=== PATIENT | female | born 1965 | race Caucasian/White ===

== ENCOUNTER 2021-12-03 06:45 | Inpatient (IN) | payer BC, SELFPAY ==
[2021-12-03] VITALS (57 sets, daily range): BP systolic 146–182; BP diastolic 77–166; PULSE 40–86; RESP 10–27; TEMP 34.1–36.7; O2SAT 93–100; BMI 18.3; BMI 21.8
--- NOTE | ~2021-12-03 | CT_ITS ---
EXAMINATION: CT BRAIN W/O DATE: 12/03/2021 20:04 INDICATION: Confusion and lethargy. TECHNIQUE: Computed tomography (CT) of the head was performed without intravenous contrast. The dose- length product was 605.33 mGy-cm. COMPARISON: No prior studies for comparison. FINDINGS: Normal brain parenchymal volume for age. Normal thurman-white differentiation. No acute intrac ranial hemorrhage, infarction, mass or mass effect. No ventriculomegaly or midline shift. Midline sagittal images demonstrate a normal corpus callosum, c raniovertebral junction and sella turcica. Basilar cisterns are patent. Paranasal sinuses and mastoids are pneumatized. No depressed skull fractures. IMPRESSION: 1. No acute intracranial abnormality. Reviewed, dictated and finalized at location A.
--- NOTE | ~2021-12-03 | XR_ITS ---
EXAMINATION: XR chest 1V portable INDICATION: Weakness, nausea and vomiting TECHNIQUE: Portable AP chest at 0758 hours COMPARISON: None available FINDINGS: The lungs are free of acute opacities. No pleural effusion or pneumothorax. The cardiomedia stinal silhouette is normal. IMPRESSION: 1. No acute cardiopulmonary abnormality. Reviewed, dictated and finalized at location A.
--- NOTE | ~2021-12-03 | CT_ITS ---
EXAMINATION: CT abdomen pelvis w con DATE: 12/03/2021 09:17 INDICATION: Epigastric abdominal pain TECHNIQUE: Computed tomography (CT) of the abdomen and pelvis was performed with 100 CC Omnipaque 350 intravenous contrast. Automated exposure control and iterative reconstruction technique were employe d. Exam dose: 502.06 mGy-cm total exam DLP. COMPARISON: 12/03/2021 portable AP chest FINDINGS: The lung bases are clear. Normal heart size. No pericardial or pleural effusion. Bilateral breast implants. Diffuse hepatic steatosis. No hepatic, splenic, pancreatic, adrenal space-occupying mass lesion. Several right renal cysts are noted, measuring up to 2 cm dimension. One or more small probable left renal cysts. No ureteral calculus or hydroureteronephrosis is noted on either side. There is a Israel catheter within the urinary bladder, which likely accounts for a small amount of air in the bladder lumen. No bladder wall thickening or fat stranding around the bladder. Normal caliber of the abdominal aorta. No intraperitoneal or retroperitoneal or pelvic mass lesion or adenopathy or ascites is noted. The uterus is situated in the right pelvic area. No adnexal mass les ion is noted. There is diverticulosis of the left and right colon; no CT evidence of diverticulitis. No bowel obstr uction or intraperitoneal free air. Small fat-containing umbilical hernia. Severe degenerative disc disease at L2-3 and moderately severe degenerative disc disease at L4-5. No suspicious lytic or osteosclerotic lesions are noted. IMPRESSION: Hepatic steatosis Diverticulosis of left and right colon; no evidence of diverticulitis Bilateral renal probable cysts Bilateral breast implants Reviewed, dictated and finalized at Location A. Reviewed, dictated and finalized at location D.
--- NOTE | 2021-12-03 06:47 | ECG_ITS ---
Measurements Intervals [place] Rate: 57 P: 46 AL: 160 QRS: 38 QRSD: 89 T: 45 QT: 455 QTc: 445 Interpretive Statements SINUS BRADYCARDIA BASELINE ARTIFACT- I, II, AVR, AVL, AVF, V1, V4 BORDERLINE ECG NO PREVIOUS ECG AVAILABLE FOR COMPARISON Electronically Signed On 12-03-2021 7:47:00 CDT by Sohail Uriarte D.O.
[2021-12-03 06:58] LABS: Glucose Point of Care 126 mg/dl (65-105)
[2021-12-03] MEDS: ONDANSETRON INJ 4 MG/2 ML VIAL IV PUSH (07:02)
[2021-12-03] MEDS: SODIUM CHLORIDE 0.9% IV 1,000 ML 999 ML IV CONT ×2 (07:02→09:19)
--- NOTE | 2021-12-03 07:10 | PC.NURSE ---
Dr. Crenshaw at bedside at this time.
[2021-12-03 07:14] LABS: Basophils Absolute Auto 0.1 K/mm3 (0.0-0.1); Basophils Percent Auto 0.6 % (0.2-1.2); Eosinophils Absolute Auto 0.1 K/mm3 (0-0.3); Eosinophils Percent Auto 0.4 % (0-4.4); Hemoglobin 15.2 g/dL (12.0-15.0); Immature Granulocyte Absolute 0.04 K/mm3 (0.00-0.031); Immature Granulocyte Percent A 0.3 % (0-0.5); Lymphocytes Absolute Auto 2.64 K/mm3 (0.9-3.2); Lymphocytes Percent Auto 22.9 % (18.3-44.2); Mean Corpuscular HGB Conc 34.5 g/dl (32-36); Mean Corpuscular Hemoglobin 29.4 pg (26-34); Mean Corpuscular Volume 85.1 fl (80-100); Mean Platelet Volume 10.9 fl (7.4-10.4); Monocytes Absolute Auto 0.5 K/mm3 (0.1-0.6); Monocytes Percent Auto 4.5 % (2.6-8.5); Neutrophils Absolute Auto 8.2 K/mm3 (1.3-6.7); Neutrophils Percent Auto 71.3 % (45.5-73.1); Platelet Count Result 344 k/mm3 (150-375); Red Blood Count 5.17 M/mm3 (4.2-5.4); Red Cell Distribution Width 13.5 % (11.5-14.5); White Blood Count 11.5 K/mm3 (4.5-10.0)
--- NOTE | 2021-12-03 07:16 | ED.GENADULT ---
HPI - General Adult General Chief complaint: Weakness Stated complaint: Vomiting Time Seen by Provider: 12/03/21 06:57 History of Present Illness HPI narrative: Patient is a 56-year-old female who presents ER with weakness and nausea and vomiting. Patient began vomiting 2 hours ago and EMS helped family. She has pain in her epigastrium. She reports she has had a couple of bouts of this over the last 2 years. She was initially seen in [facility] where she lives. She reports she is given antiemetics and discharged home. She also had a CT scan that showed some renal cysts but they do not know what those cysts represent. She has since been to urgent cares. She is currently traveling for work. Patient does have history of hypothyroidism for which she does take her levothyroxine. Coworkers present reports she has had at least a 50 pound weight loss. Patient denies any fevers but she was diaphoretic when she arrived. Patient also found to be hypothermic. Related Data Home Medications Medication Instructions Recorded Confirmed bupropion HCl 150 mg 24 hr tablet, mg PO 12/03/21 extended release bupropion HCl 300 mg 24 hr tablet, mg PO 12/03/21 extended release diltiazem HCl 240 mg mg PO 12/03/21 capsule,extended release 24 hr escitalopram oxalate 10 mg tablet mg 12/03/21 pantoprazole 40 mg tablet,delayed mg PO 12/03/21 release prochlorperazine maleate 10 mg mg 12/03/21 tablet Allergies Allergy/AdvReac Type Severity Reaction Status Date / Time No Known Allergies Allergy Verified 12/03/21 07:01 Review of Systems Review of Systems: All systems reviewed & are unremarkable except as noted in HPI and below Constitutional: Constitutional: Reports chills, Reports fatigue and Denies fever(s) ENT: Denies nasal congestion and Denies sore throat Cardiovascular: Cardiovascular: Denies chest pain, Denies rapid heart rate and Denies radiating jaw, neck or arm pain Respiratory: Respiratory: Denies cough Gastrointestinal: Gastrointestinal: Reports abdominal pain, Denies diarrhea, Reports nausea and Reports vomiting Genitourinary: Genitourinary: Denies nocturia and Denies dysuria Musculoskeletal: Musculoskeletal: Denies back pain and Denies arthralgias [facility] Past Medical History Medical History (Updated 12/03/21 @ 18:21 by Azam Crenshaw MD) Elijah's thyroiditis Hypothyroidism Renal cyst Surgical History Surgical History (Updated 12/03/21 @ 07:17 by Azam Crenshaw MD) History of section x3 Family History Family History (Updated 12/03/21 @ 17:46 by Ben Pérez RN) Other Unknown family medical history Social History Social History (Updated 12/03/21 @ 07:45 by Azam Crenshaw MD) Smoking status: Never smoker Exam Narrative: GENERAL: Fatigued-appearing, well-nourished, and in no acute distress. HEAD: Normocephalic, atraumatic. EYES: PERRL and EOMI. ENT: Mucous membranes moist. CHEST: Clear to auscultation. No respiratory distress. HEART: Bradycardic and regular. Normal peripheral pulses. ABDOMEN: Soft, mild epigastric discomfort without guarding, nondistended. EXTREMITIES: Normal range of motion. No edema. SKIN: Cool, dry, no rash. NEURO: Alert and oriented x3. PSYCH: Normal mood and affect. Course Course Emergency Course: I spoke with the patient's Jerrell who feels patient has had her thyroid level followed every 6 to 12 months through her PCP. I have gone through her [email or web address] shruthi on her phone. Her last TSH was on 01/08/2021 and was 0.028. Her T3 was 3.4, and her free T4 was 1.46. She also had a thyroid peroxidase antibody drawn and it was elevated at 69 with a normal high of 34. Prior to that she had a TSH of 3.030 on 11/23/2017, and then had a TSH of 25.95 on 07/27/2017. At that time her T3 was 2.4 and her T4 free was 0.98. It does not appear patient has filled her levothyroxine since December 2020 when she was on 137 mcg. Patient
--- NOTE | 2021-12-03 07:20 | PC.NURSE ---
Bedside report given to YOGESH Reid.
--- NOTE | 2021-12-03 07:21 | PC.NURSE ---
Care assumed of pt. Pt has terence hugger in place and NS running through fluid warmer upon arrival to room.
[2021-12-03 07:29] LABS: Lipase 106 U/L (23-300)
[2021-12-03 07:31] LABS: Alanine Aminotransferase 20 U/L (6-35); Albumin Level 4.9 g/dL (3.5-5.1); Alkaline Phosphatase 102 U/L (38-126); Anion Gap 14 mmol/L (8-16); Aspartate Amino Transferase 27 U/L (14-36); Bilirubin,Total 0.9 mg/dL (0.2-1.3); Blood Urea Nitrogen 16 mg/dL (7-17); Calcium 10.3 mg/dL (8.4-10.2); Carbon Dioxide 15 mmol/L (22-30); Chloride 110 mmol/L (98-107); Estimated Glomerular Filt Rate 58; Glucose 119 mg/dL (65-110); Potassium 3.8 mmol/L (3.4-5.0); Sodium 139 mmol/L (137-145)
[2021-12-03 07:35] LABS: Glucose Point of Care 113 mg/dl (65-105)
[2021-12-03 08:02] LABS: Appearance Urine Clear (Clear); Bilirubin Urine Negative (Negative); Blood Urine Negative (Negative); Color Urine Yellow (Yellow); Glucose Urine UA Negative (Negative); Ketones Urine 2+ mg/dL (Negative); Leukocyte Esterase Ur Trace LEU/UL (Negative); Nitrate Urine Negative (Negative); Protein Urine Negative (Negative); Specific Grav Ur 1.025 (1.001-1.035); Urobilinogen Urine 0.2 mg/dL (<2.0); pH Urine 6.5 (5.0-9.0)
[2021-12-03 08:07] LABS: Mucus Urine Rare /lpf; RBC Urine 0-2 /hpf (0-2); Squamous Epithelial Cell Urine Rare /hpf (Few); WBC Urine 0-3 /hpf
[2021-12-03 08:08] LABS: Ethanol < 10 mg/dL (<10)
[2021-12-03 08:14] LABS: Add Urine Microscopic? YES
[2021-12-03 08:22] LABS: Barbiturate Screen Urine Negative (Negative); Benzodiazepines Screen Urine Negative (Negative)
[2021-12-03 08:29] LABS: Amphetamine Screen Urine Negative (Negative); Cannabinoid Screen Urine Positive (Negative); Cocaine Screen Urine Negative (Negative); Methadone Screen Urine Negative (Negative); Opiate Screen Urine Positive (Negative); Phencyclidine Screen Urine Negative (Negative)
[2021-12-03] MEDS: MORPHINE SULFATE (*CRX) 4 MG/ML INJ IV PUSH (08:34)
[2021-12-03 08:38] LABS: Lactic Acid Reflex 2.7 mmol/L (0.7-2.0)
--- NOTE | 2021-12-03 08:51 | PC.NURSE ---
Pt to CT.
--- NOTE | 2021-12-03 10:02 | PC.NURSE ---
Dr. Taylor at bedside for pt reassessment.
[2021-12-03 10:34] LABS: Free T4 Free Thyroxine Reflex 0.95 ng/dL (0.78-2.19)
[2021-12-03 10:49] LABS: Reflex Lactic Acid Yes or No Add Lactic
--- NOTE | 2021-12-03 11:21 | PC.NURSE ---
Pt is now resting more comfortably. Pt and friends at bedside updated. Call light within reach.
[2021-12-03 11:25] LABS: Lactic Acid 0.6 mmol/L (0.7-2.0)
[2021-12-03 11:28] LABS: Total Triiodothyronine (T3) 1.19 NG/ML (0.97-1.69)
[2021-12-03] MEDS: LEVOTHYROXINE SODIUM INJ 100 MCG/5 ML VIAL 70 MCG IV PUSH (11:55)
[2021-12-03] MEDS: HYDROCORTISONE SODIUM SUCCINATE 100 MG/2 ML VIAL IV PUSH ×3 (11:56→21:04)
[2021-12-03 12:46] LABS: Creatine Kinase 101 U/L (30-135)
[2021-12-03] MEDS: SODIUM CHLORIDE 0.9% IV 1,000 ML 125 ML IV CONT ×2 (13:43→20:47)
[2021-12-03] MEDS: PROMETHAZINE HCL 25 MG/ML AMPUL 12.5 MG IV PUSH ×2 (13:44→21:05)
[2021-12-03] MEDS: hydrALAZINE HCL 20 MG/ML VIAL 2.5 MG IV PUSH ×2 (14:00→20:42)
--- NOTE | 2021-12-03 17:35 | PC.NURSE ---
1228 This patient, Delaney Morgan, was admitted to IMU Room 207-01. Patient/family oriented to hospital policies and general routines including ID bracelet, bed and alarms, visiting hours, pain management, procedures, bathroom and other care routines, personal items, smoking policy, room service/diet, and visiting hours. Information on how to activate the Rapid Response Team has been discussed. Patient/Family are encouraged to report perceived risks to care and to ask questions if they do not understand what they are told or what they should do.
--- NOTE | 2021-12-03 19:30 | PM.IMHP ---
H&P: HPI History of Present Illness Date/Time: 12/03/21 08:30 Chief Complaint: nausea, vomiting, diarrhea Narrative: 56F with a past medical history of hypothyroidism and hypertension who presents to the emergency department with nausea, vomiting and diarrhea. History obtained from employees who are present with the patient and some parts from patient. Male employee reports the patient woke him around 0300 this morning vomiting and confused not making sense, so he brought her to the emergency department. Patient says she does not remember what time but that she remembers having nausea, vomiting and diarrhea overnight. She also reports headache and vision changes. Currently, the patient reports feeling feverish, epigastric abdominal pain, nausea, vomiting, headache, sore throat, weakness and generalized malaise. She says she takes her thyroid medication every morning with her other medication but without food. She reports feeling poorly with fatigue and tiredness for the last year and a half. Has had a 50lb weight loss and says she has been to a doctor to have this worked up but has been smoking marijuana to increase her appetite. Patient denies chest pain, shortness of breath, difficulty breathing. In the emergency department, TSH 95, Free T4 is pending. Lipase 106. UA with trace leukocyte esterase. UDS positive for cannabinoids and opioates. Lactic acid 2.7. Initial temperature 95.[address] abdomen pelvis with hepatic steatosis and diverticulosis. Review of Systems Constitutional: Constitutional: Reports body ache(s), Reports fatigue and Reports weakness Cardiovascular: Cardiovascular: Denies chest pain, Reports diaphoresis, Reports lightheadedness and Denies palpitations Respiratory: Respiratory: Denies dyspnea Gastrointestinal: Gastrointestinal: Reports abdominal pain, Reports diarrhea, Reports nausea and Reports vomiting Musculoskeletal: Musculoskeletal: Reports myalgias Neurologic: Reports confusion Endocrine: Endocrine: Reports excessive sweating, Reports fatigue and Reports heat intolerance PMFSH Past Medical History Medical History Elijah's thyroiditis Hypertension Hypothyroidism Nephrolithiasis Ovarian cyst Renal cyst Surgical History Surgical History History of section x3 Family History Family History (Updated 12/03/21 @ 19:47 by Micheline Glaser MD) Mother Thyroid condition Other Adopted Unknown family medical history Social History Social History (Updated 12/03/21 @ 19:48 by Micheline Glaser MD) Smoking packs per day: 0.3 Smoking cigarettes per day: 6.0 Years smoked: 10 Smoking pack-years: 3.00 Smoking status: Former smoker Tobacco type: cigarettes Second hand tobacco smoke exposure: No Smoking end date: 03/13/00 Alcohol intake: former Substance use: current Substance use type: marijuana Living arrangements: with family 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 Meds Home Medications and Allergies Home Medications Medication Instructions Recorded Confirmed Type bupropion HCl 150 mg 24 hr tablet, 150 mg PO DAILY 12/03/21 12/03/21 History extended release bupropion HCl 300 mg 24 hr tablet, 300 mg PO DAILY 12/03/21 12/03/21 History extended release diltiazem HCl 240 mg 240 mg PO DAILY 12/03/21 12/03/21 History capsule,extended release 24 hr escitalopram oxalate 10 mg tablet 10 mg DAILY 12/03/21 12/03/21 History pantoprazole 40 mg tablet,delayed 40 mg PO DAILY 12/03/21 12/03/21 History release prochlorperazine maleate 10 mg 10 mg DAILY 12/03/21 12/03/21 History tablet Allergies Allergy/AdvReac Type Severity Reaction Status Date / Time No Known Allergies Allergy
[2021-12-04] VITALS (13 sets, daily range): BP systolic 108–159; BP diastolic 73–87; PULSE 45–77; RESP 12–16; TEMP 36.5–37.6; O2SAT 99–100
[2021-12-04] MEDS: SODIUM CHLORIDE 0.9% IV 1,000 ML 125 ML IV CONT ×3 (04:54→20:35)
[2021-12-04 04:59] LABS: Basophils Percent Auto 0.1 % (0.2-1.2); Hematocrit 40.8 % (37.0-47.0); Hemoglobin 13.7 g/dL (12.0-15.0); Immature Granulocyte Absolute 0.05 K/mm3 (0.00-0.031); Immature Granulocyte Percent A 0.5 % (0-0.5); Lymphocytes Absolute Auto 0.83 K/mm3 (0.9-3.2); Mean Corpuscular HGB Conc 33.6 g/dl (32-36); Mean Corpuscular Hemoglobin 29.6 pg (26-34); Mean Corpuscular Volume 88.1 fl (80-100); Mean Platelet Volume 10.8 fl (7.4-10.4); Monocytes Absolute Auto 0.3 K/mm3 (0.1-0.6); Monocytes Percent Auto 2.5 % (2.6-8.5); Neutrophils Absolute Auto 9.2 K/mm3 (1.3-6.7); Neutrophils Percent Auto 88.9 % (45.5-73.1); Platelet Count Result 307 k/mm3 (150-375); Red Blood Count 4.63 M/mm3 (4.2-5.4); Red Cell Distribution Width 14.4 % (11.5-14.5); White Blood Count 10.4 K/mm3 (4.5-10.0)
[2021-12-04] MEDS: PROMETHAZINE HCL 25 MG/ML AMPUL 12.5 MG IV PUSH ×3 (04:59→19:27)
[2021-12-04 05:09] LABS: INR 1.1; Prothrombin Time 13.9 Seconds (11.1-14.7)
[2021-12-04 05:10] LABS: Partial Thromboplastin Time 26.2 SECONDS (22.3-36.8)
[2021-12-04 05:32] LABS: Alanine Aminotransferase 18 U/L (6-35); Albumin Level 4.2 g/dL (3.5-5.1); Alkaline Phosphatase 74 U/L (38-126); Anion Gap 15 mmol/L (8-16); Aspartate Amino Transferase 20 U/L (14-36); Bilirubin,Total 0.4 mg/dL (0.2-1.3); Blood Urea Nitrogen 14 mg/dL (7-17); Calcium 9.1 mg/dL (8.4-10.2); Carbon Dioxide 16 mmol/L (22-30); Chloride 109 mmol/L (98-107); Estimated CRCL calculation 76 ml/min; Estimated Glomerular Filt Rate > 60; Glucose 106 mg/dL (65-110); Potassium 3.7 mmol/L (3.4-5.0); Sodium 140 mmol/L (137-145)
[2021-12-04] MEDS: HYDROCORTISONE SODIUM SUCCINATE 100 MG/2 ML VIAL IV PUSH (06:50)
[2021-12-04] MEDS: LEVOTHYROXINE SODIUM INJ 100 MCG/5 ML VIAL 70 MCG IV PUSH (06:51)
--- NOTE | 2021-12-04 08:34 | PM.IMPN ---
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 TSH 95. Cortisol high. Free t4 normal. Clinically improved this morning. -Discontinue hydrocortisone -Levothyroxine 70 mcg IV daily -Continue terence hugger -Continue IVF -Zofran PRN (2) Metabolic acidosis: Code(s): E87.2 - Acidosis Status: Acute Assessment and Plan: Diarrhea versus hypothermia. Improved. Will continue IVF. (3) Leukocytosis: Code(s): D72.829 - Elevated white blood cell count, unspecified Status: Acute Assessment and Plan: Patient lactic acid resolved without antibiotics but with fluids. Hemodynamically stable. Will defer antibiotics for now. No evidence of pneumonia on CXR or urinary tract infection on UA. Also CT A/P with no acute intra-abdominal pathology. Will monitor for now. (4) Hypertension: Code(s): I10 - Essential (primary) hypertension Status: Acute Assessment and Plan: Hypertensive with SBP 180s in ED. Gave once time mcneal of hydralazine. Take cardizem at home, but will hold due to bradycardia. -Hydralazine PRN (5) Abdominal pain: Code(s): R10.9 - Unspecified abdominal pain Status: Acute Assessment and Plan: CT abdomen pelvis with no acute intra-abdominal processes. Pain is in epigastric region but lipase was normal. LFTs normal. This is likely due to myxedema. Treatment as noted above. Plan Full Code Jerrell is decision maker if she cannot make decisions Enoxaparin DVT prophylaxis Subjective Date/time seen: 12/04/21 08:34 Patient says she feels better. Apologizes because she does not remember seeing me in the emergency department. Says she still has some nausea, muscle aches. Says she thought she had pancreatitis because her abdominal pain was so severe yesterday. Review of Systems Gastrointestinal: Gastrointestinal: Reports nausea and Denies vomiting Musculoskeletal: Musculoskeletal: Reports myalgias Exam Narrative: GENERAL: Diaphoresis and lethargic, slow to answer questions HEENT: Normocephalic, atraumatic, anicteric, nares clear, oropharynx moist and clear, dentition excellent NECK: Supple CV: Normal S1, S2, RRR, No MRG EXTREMITIES: warm well perfused SKIN: warm, dry and intact. Ankle tattoo NEURO: CN 2-12 grossly intact. Awake and alert. Oriented. Objective Data Vital Signs Vital Signs: Vital Signs - 24 hr 12/03/21 08:35 12/03/21 08:45 12/03/21 08:46 Temperature 94.6 F L 94.7 F L 94.7 F L Pulse Rate 48 L 46 L 48 L Respiratory Rate 17 18 16 Blood Pressure 164/101 H 158/113 H Pulse Oximetry 100 98 98 Oxygen Delivery 12/03/21 09:00 12/03/21 08:47 12/03/21 09:12 Temperature 95.2 F L 94.8 F L 95.0 F L Pulse Rate 55 L Respiratory Rate 19 Blood Pressure Pulse Oximetry 99 Oxygen Delivery 12/03/21 09:15 12/03/21 09:30 12/03/21 09:30 Temperature 95.2 F L 95.4 F L 95.4 F L Pulse Rate 46 L 50 L Respiratory Rate 19 14 Blood Pressure 156/114 H Pulse Oximetry 96 Oxygen Delivery 12/03/21 09:38 12/03/21 09:45 12/03/21 09:46 Temperature 95.4 F L 95.5 F L 95.5 F L Pulse Rate 51 L 61 54 L Respiratory Rate 13 11 L 11 L Blood Pressure 156/114 H 164/103 H Pulse Oximetry 98 98 98 Oxygen Delivery 12/03/21 10:00 12/03/21 10:30 12/03/21 09:47 Temperature 95.5 F L 95.7 F L 95.5 F L Pulse Rate 58 L Respiratory Rate Blood Pressure Pulse Oximetry 98 Oxygen Delivery 12/03/21 10:00 12/03/21 10:01 12/03/21 10:15 Temperature 95.5 F L 95.6 F L 95.6 F L Pulse Rate 50 L 65 56 L Respiratory Rate 15 16 Blood Pressure 158/99 H Pulse Oximetry 97 97 99 Oxygen Delivery 12/03/21 10:16 12/03/21 10:30 12/03/21 10
[2021-12-04] MEDS: ENOXAPARIN 40 MG/0.4 ML SYRINGE SUB-Q (09:30)
[2021-12-04] MEDS: ESCITALOPRAM OXALATE 10 MG TABLET BY MOUTH (20:33)
[2021-12-04] MEDS: SUCRALFATE SUSP 100 MG/ML 10 ML UDC 1000 MG PO (22:39)
[2021-12-05] VITALS (16 sets, daily range): BP systolic 133–171; BP diastolic 78–101; PULSE 41–86; RESP 14–20; TEMP 36.6–37.4; O2SAT 95–100
[2021-12-05] MEDS: PROMETHAZINE HCL 25 MG/ML AMPUL 12.5 MG IV PUSH ×2 (01:50→12:25)
[2021-12-05] MEDS: SODIUM CHLORIDE 0.9% IV 1,000 ML 125 ML IV CONT (05:12)
[2021-12-05 05:46] LABS: Alanine Aminotransferase 17 U/L (6-35); Alkaline Phosphatase 64 U/L (38-126); Anion Gap 12 mmol/L (8-16); Aspartate Amino Transferase 22 U/L (14-36); Bilirubin,Total 0.6 mg/dL (0.2-1.3); Blood Urea Nitrogen 14 mg/dL (7-17); Calcium 8.8 mg/dL (8.4-10.2); Carbon Dioxide 21 mmol/L (22-30); Chloride 105 mmol/L (98-107); Estimated CRCL calculation 72 ml/min; Estimated Glomerular Filt Rate > 60; Glucose 108 mg/dL (65-110); Potassium 3.3 mmol/L (3.4-5.0); Sodium 138 mmol/L (137-145)
[2021-12-05 06:15] LABS: Free T4 Free Thyroxine 0.91 ng/mL (0.78-2.19)
[2021-12-05] MEDS: SUCRALFATE SUSP 100 MG/ML 10 ML UDC 1000 MG PO ×2 (07:26→20:28)
[2021-12-05] MEDS: LEVOTHYROXINE SODIUM INJ 100 MCG/5 ML VIAL 70 MCG IV PUSH (07:26)
--- NOTE | 2021-12-05 08:54 | PM.IMPN ---
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 TSH 95. Cortisol high. Free t4 normal. Off terence hugger with normal temperature but HR still sometimes in the 40s. Improved. -Levothyroxine 70 mcg IV daily -Discontinue IVF -Zofran PRN (2) Metabolic acidosis: Code(s): E87.2 - Acidosis Status: Acute Assessment and Plan: Diarrhea versus hypothermia. Improved. Will monitor. (3) Leukocytosis: Code(s): D72.829 - Elevated white blood cell count, unspecified Status: Acute Assessment and Plan: Patient lactic acid resolved without antibiotics but with fluids. Hemodynamically stable. Will defer antibiotics for now. No evidence of pneumonia on CXR or urinary tract infection on UA. Also CT A/P with no acute intra-abdominal pathology. Will monitor for now. (4) Hypertension: Code(s): I10 - Essential (primary) hypertension Status: Acute Assessment and Plan: Hypertensive with SBP 180s in ED. Gave once time mcneal of hydralazine. Take cardizem at home, but will hold due to bradycardia. -Hydralazine PRN (5) Abdominal pain: Code(s): R10.9 - Unspecified abdominal pain Status: Acute Assessment and Plan: CT abdomen pelvis with no acute intra-abdominal processes. Pain is in epigastric region but lipase was normal. LFTs normal. This is likely due to myxedema. Treatment as noted above. Plan Full Code Jerrell is decision maker if she cannot make decisions Enoxaparin DVT prophylaxis Subjective Date/time seen: 12/05/21 08:54 Patient still reports significant nausea. Nursing reports the compazine makes her sleep all day. Also wellbutrin high dose was increased approximately a year and a half ago around the same time the weight loss and other symptoms began. Reports she had an appointment at the cancer center scheduled. Emesis overnight Review of Systems Gastrointestinal: Gastrointestinal: Reports nausea and Reports vomiting Exam Narrative: GENERAL: Diaphoresis and lethargic, slow to answer questions HEENT: Normocephalic, atraumatic, anicteric, nares clear, oropharynx moist and clear, dentition excellent NECK: Supple CV: Normal S1, S2, RRR, No MRG EXTREMITIES: warm well perfused SKIN: warm, dry and intact. Ankle tattoo NEURO: CN 2-12 grossly intact. Awake and alert. Oriented. Objective Data Vital Signs Vital Signs: Vital Signs - 24 hr 12/04/21 12:00 12/04/21 10:00 12/04/21 12:00 Temperature 36.9 C Pulse Rate 72 64 74 Respiratory Rate 16 Blood Pressure 108/73 Pulse Oximetry 99 Oxygen Delivery 12/04/21 14:00 12/04/21 12:00 12/04/21 16:00 Temperature 37.6 C Pulse Rate 54 L 54 L 77 Respiratory Rate 16 12 Blood Pressure 147/87 H Pulse Oximetry 99 99 Oxygen Delivery Room Air 12/04/21 16:00 12/04/21 16:00 12/04/21 18:00 Temperature Pulse Rate 54 L 46 L Respiratory Rate Blood Pressure Pulse Oximetry Oxygen Delivery Room Air 12/04/21 20:00 12/05/21 00:00 12/05/21 03:30 Temperature 36.6 C 36.8 C 36.6 C Pulse Rate 45 L 65 41 L Respiratory Rate 16 16 16 Blood Pressure 159/82 H 152/94 H 171/93 H Pulse Oximetry 100 100 100 Oxygen Delivery 12/04/21 20:00 12/05/21 00:00 12/05/21 04:00 Temperature Pulse Rate Respiratory Rate Blood Pressure Pulse Oximetry Oxygen Delivery Room Air Room Air Room Air 12/04/21 20:00 12/04/21 22:00 12/05/21 00:00 Temperature Pulse Rate 51 L 71 59 L Respiratory Rate Blood Pressure Pulse Oximetry Oxygen Delivery 12/05/21 02:00 12/05/21 04:00 12/05/21 06:00 Temperature Pulse Rate 44 L 51 L 49 L Respiratory Rate Blood Pressure Pulse Ox
[2021-12-05] MEDS: POTASSIUM CHLORIDE INJ 40 MEQ in SODIUM CHLORIDE 0.9% IV 500 ML 130 MEQ IVPB (09:10)
[2021-12-05] MEDS: ENOXAPARIN 40 MG/0.4 ML SYRINGE SUB-Q (09:10)
[2021-12-05] MEDS: buPROPion HCL XL (24 HR) 150 MG TABCR 300 MG PO (09:12)
[2021-12-05] MEDS: PANTOPRAZOLE 40 MG TABLET PO (09:13)
[2021-12-05] MEDS: buPROPion HCL XL (24 HR) 150 MG TABCR PO (09:13)
[2021-12-05] MEDS: ESCITALOPRAM OXALATE 10 MG TABLET BY MOUTH (12:26)
[2021-12-05] MEDS: hydrALAZINE HCL 20 MG/ML VIAL 2.5 MG IV PUSH (20:27)
[2021-12-06] VITALS (13 sets, daily range): BP systolic 118–161; BP diastolic 70–92; PULSE 47–73; RESP 16–20; TEMP 36.4–37.3; O2SAT 91–99; BMI 20.7
[2021-12-06] MEDS: LEVOTHYROXINE SODIUM INJ 100 MCG/5 ML VIAL 70 MCG IV PUSH (06:32)
[2021-12-06] MEDS: SUCRALFATE SUSP 100 MG/ML 10 ML UDC 1000 MG PO ×4 (06:32→20:35)
[2021-12-06] MEDS: buPROPion HCL XL (24 HR) 150 MG TABCR 300 MG PO (08:28)
[2021-12-06] MEDS: buPROPion HCL XL (24 HR) 150 MG TABCR PO (08:28)
[2021-12-06] MEDS: PANTOPRAZOLE 40 MG TABLET PO (08:28)
[2021-12-06] MEDS: ESCITALOPRAM OXALATE 10 MG TABLET BY MOUTH (08:29)
[2021-12-06] MEDS: ENOXAPARIN 40 MG/0.4 ML SYRINGE SUB-Q (08:29)
[2021-12-06 11:23] LABS: Anion Gap 11 mmol/L (8-16); Blood Urea Nitrogen 14 mg/dL (7-17); Calcium 9.6 mg/dL (8.4-10.2); Carbon Dioxide 24 mmol/L (22-30); Chloride 100 mmol/L (98-107); Estimated CRCL calculation 72 ml/min; Estimated Glomerular Filt Rate > 60; Glucose 79 mg/dL (65-110); Potassium 3.7 mmol/L (3.4-5.0); Sodium 135 mmol/L (137-145)
[2021-12-06 11:49] LABS: Free T4 Free Thyroxine 1.25 ng/mL (0.78-2.19)
[2021-12-06 14:42] LABS: Triiodothyronine T3 Free 2.4 pg/mL (2.3-4.2)
--- NOTE | 2021-12-06 14:55 | PCNSR ---
On 12/06/21, the student, Franklin Negrete, provided care and [facility]. I have reviewed the student's documentation and agree with the findings.
--- NOTE | 2021-12-06 17:14 | PM.IMPN ---
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 TSH 39 on repeat this morning and patient has persistent nausea. Will defer discharge and repeat thyroid labs in the morning. -Levothyroxine 70 mcg IV daily (2) Metabolic acidosis: Code(s): E87.2 - Acidosis Status: Acute Assessment and Plan: Diarrhea versus hypothermia. Improved. Will monitor. (3) Leukocytosis: Code(s): D72.829 - Elevated white blood cell count, unspecified Status: Acute Assessment and Plan: Patient lactic acid resolved without antibiotics but with fluids. Hemodynamically stable. Will defer antibiotics for now. No evidence of pneumonia on CXR or urinary tract infection on UA. Also CT A/P with no acute intra-abdominal pathology. Will monitor for now. (4) Hypertension: Code(s): I10 - Essential (primary) hypertension Status: Acute Assessment and Plan: Hypertensive with SBP 180s in ED. Gave once time mcneal of hydralazine. Take cardizem at home, but will hold due to bradycardia. -Hydralazine PRN (5) Abdominal pain: Code(s): R10.9 - Unspecified abdominal pain Status: Acute Assessment and Plan: CT abdomen pelvis with no acute intra-abdominal processes. Pain is in epigastric region but lipase was normal. LFTs normal. This is likely due to myxedema. Treatment as noted above. (6) Bradycardia: Code(s): R00.1 - Bradycardia, unspecified Status: Acute Assessment and Plan: Due to persistent bradycardia, patient's home cardizem was not restarted. Plan Full Code Jerrell is decision maker if she cannot make decisions Enoxaparin DVT prophylaxis Subjective Date/time seen: 12/06/21 17:14 Patient has questions about how her symptoms are related to her thyroid dysfunction. Patient says she feels better and was able to eat eggs for breakfast this morning without nausea. Review of Systems Gastrointestinal: Gastrointestinal: Denies nausea Exam Narrative: GENERAL: Diaphoresis and lethargic, slow to answer questions HEENT: Normocephalic, atraumatic, anicteric, nares clear, oropharynx moist and clear, dentition excellent NECK: Supple CV: Normal S1, S2, RRR, No MRG EXTREMITIES: warm well perfused SKIN: warm, dry and intact. Ankle tattoo NEURO: CN 2-12 grossly intact. Awake and alert. Oriented. Objective Data Vital Signs Vital Signs: Vital Signs - 24 hr 12/05/21 18:00 12/05/21 20:00 12/05/21 21:45 Temperature 37.4 C Pulse Rate 51 L 67 Respiratory Rate 18 Blood Pressure 170/90 H 133/78 Pulse Oximetry 99 Oxygen Delivery 12/05/21 22:00 12/05/21 23:27 12/05/21 20:00 Temperature 36.9 C Pulse Rate 65 66 Respiratory Rate 18 Blood Pressure 154/80 H Pulse Oximetry 95 98 Oxygen Delivery Room Air 12/06/21 00:00 12/05/21 20:00 12/06/21 00:00 Temperature Pulse Rate 46 L 49 L Respiratory Rate Blood Pressure Pulse Oximetry 95 Oxygen Delivery Room Air 12/06/21 02:00 12/06/21 04:00 12/06/21 04:00 Temperature Pulse Rate 54 L 55 L Respiratory Rate Blood Pressure Pulse Oximetry 99 Oxygen Delivery Room Air 12/06/21 04:00 12/06/21 06:00 12/06/21 08:00 Temperature 36.9 C 36.4 C Pulse Rate 70 47 L 52 L Respiratory Rate 18 16 Blood Pressure 139/87 161/92 H Pulse Oximetry 99 99 Oxygen Delivery 12/06/21 08:00 12/06/21 08:00 12/06/21 10:00 Temperature Pulse Rate 49 L 59 L Respiratory Rate Blood Pressure Pulse Oximetry Oxygen Delivery Room Air 12/06/21 12:00 12/06/21 12:00 12/06/21 12:00 Temperature 37.1 C Pulse Rate 53 L 54 L Respiratory Rate 16 Blood Pressure 143/91 H Pul
[2021-12-07] VITALS (7 sets, daily range): BP systolic 125–141; BP diastolic 62–93; PULSE 58–74; RESP 12–20; TEMP 36.1–36.4; O2SAT 97–100
[2021-12-07 05:13] LABS: Free T4 Free Thyroxine 1.02 ng/mL (0.78-2.19)
[2021-12-07] MEDS: LEVOTHYROXINE SODIUM INJ 100 MCG/5 ML VIAL 70 MCG IV PUSH (06:22)
[2021-12-07] MEDS: SUCRALFATE SUSP 100 MG/ML 10 ML UDC 1000 MG PO ×2 (06:22→12:17)
[2021-12-07] MEDS: ESCITALOPRAM OXALATE 10 MG TABLET BY MOUTH (10:27)
[2021-12-07] MEDS: buPROPion HCL XL (24 HR) 150 MG TABCR 300 MG PO ×2 (10:27)
[2021-12-07] MEDS: ENOXAPARIN 40 MG/0.4 ML SYRINGE SUB-Q (10:28)
[2021-12-07] MEDS: PANTOPRAZOLE 40 MG TABLET PO (10:28)
[2021-12-07] MEDS: buPROPion HCL XL (24 HR) 150 MG TABCR PO (10:29)
--- NOTE | 2021-12-07 12:45 | PM.DS ---
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 Patient required a terence hugger, intravenous fluids and antiemetics around the clock. This improved and on the day of discharge patient says she feels the best she has felt in a long time. Denies nausea and has a really good appetite. She is clinically improve. Advised patient she will need to follow up with her primary care physician within a week of discharge. Also advised she may benefit from seeing an city carrier. While the TSH is still elevated the free t4 is normal and the patient no longer has bradycardia, hypothermia, nausea, abdominal pain or confusion. Will discharge to home. -Levothyroxine 150 mcg per day -Recheck thyroid labs in 4-6 weeks outpatient (2) Metabolic acidosis: Code(s): E87.2 - Acidosis Status: Acute Assessment and Plan: Diarrhea versus hypothermia. Bicarb 15 on admission but by the day of discharge this was normal. Metabolic acidosis resolved. (3) Leukocytosis: Code(s): D72.829 - Elevated white blood cell count, unspecified Status: Acute Assessment and Plan: Patient lactic acid resolved without antibiotics but with fluids. Hemodynamically stable. No evidence of pneumonia on CXR or urinary tract infection on UA. Also CT A/P with no acute intra-abdominal pathology. Leukocytosis was downtrending. No antibiotics were given during the hospitalization. Resolved. (4) Hypertension: Code(s): I10 - Essential (primary) hypertension Status: Acute Assessment and Plan: Hypertensive with SBP 180s in ED. Gave once time mcneal of hydralazine. Take cardizem at home, but will hold due to bradycardia. The bradycardia has resolved with the heart rate in the 60s-70s, so discussed with patient to hold the cardizem until follow up with primary care physician. Will dicharge patient with amlodipine 5 mg po daily. (5) Abdominal pain: Code(s): R10.9 - Unspecified abdominal pain Status: Acute Assessment and Plan: CT abdomen pelvis with no acute intra-abdominal processes. Pain is in epigastric region but lipase was normal. LFTs normal. This is likely due to myxedema. This required no intervention other than treating hypothyroidism. (6) Bradycardia: Code(s): R00.1 - Bradycardia, unspecified Status: Acute Assessment and Plan: On initial presentation patient had bradycardia, which was monitored continuously on telemtry. On the day of discharge the heart rate is 58-70. Home cardizem held for discharge. 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 Her employee reports she woke him around 0300 on 12/05 speaking but not making sense and having severe nausea, vomiting and diarrhea. The patient was found to have a TSH of 95. Patient had bradycardia, hypothermia, abdominal pain, nausea and altered mental status. CT head showed a normal brain. CT abdomen pelvis showed hepatic steatosis, diverticulosis fo the left and right colon and bilateral renal cysts. The patient was admitted to the IMU and over the next few days improved. She started with an initial dose of levothyroxine 70 mcg IV and liothyronine 2.5 mcg given x1. She was continued on only
== END 2021-12-07 15:00 | disposition home or self-care (01) | DRG 81 ==
LOC: ANHED 07:19 → ANHIMU 11:44
PROVIDERS: Emergency Medicine; Admitting Provider Family Medicine; Emergency Provider Emergency Medicine; Visit Provider Family Medicine
DX: E03.5 Myxedema coma (principal); E87.2 Acidosis; E06.3 Autoimmune thyroiditis; E03.9 Hypothyroidism, unspecified; I10 Essential (primary) hypertension; K57.30 Diverticulosis of large intestine without perforation or abscess without bleeding; K76.0 Fatty (change of) liver, not elsewhere classified; N28.1 Cyst of kidney, acquired; R00.1 Bradycardia, unspecified; F12.90 Cannabis use, unspecified, uncomplicated; Z87.442 Personal history of urinary calculi; Z87.891 Personal history of nicotine dependence
CPT/HCPCS: 36415; 70450; 71045; 74177; 80048; 80053; 80307; 81001; 82533; 82550; 82948; 83605; 83690; 83735; 84439; 84443; 84480; 84481; 85025; 85610; 85730; 93005; 96361; 96372; 96374; 96375; 96376; 99285; A9270; G0378; J0360; J1650; J1720; J2270; J2405; J2550; J3480; J7030; J7040; Q9967